=== PATIENT | male | born 2005 | race Caucasian/White ===

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

== ENCOUNTER 2023-02-01 10:16 | Emergency (ER) | payer BC ==
--- NOTE | 2023-02-01 10:46 | RAD REPORT ---
EXAM DESCRIPTION: CT - Stone Protocol - 02/01/2023 10:36 am CLINICAL HISTORY: Flank pain. FLANK PAIN COMPARISON: Abdomen Pelvis W Contrast dated 11/02/2021 TECHNIQUE: Axial images were obtained without oral or IV contrast. Lack of contrast limits solid org an and vascular assessment. The [id number] spans the entirety of the system partially obscuring uppermost abdomen and lung bases. Coronal reformatted images were obtained and reviewed. All CT scans are performed using dose optimization technique as appropriate and may include automated exposure control or mA/KV adjustment according to patient size. FINDINGS: The lower lung pinto are clear. Imaged portions of the liver and spleen show no suspicious findings on non-contrast imaging. The panc reas and adrenal glands are normal. No pathologic lymphadenopathy in the abdomen or pelvis. There is a 4 mm stone proximal left ureter resulting in mild left hydronephrosis and hydroureter. No additional stone or hydronephrosis. No bowel obstruction, free air, free fluid or abscess. Mildly prominent lymph nodes are seen in right lower quadrant.Normal appendix. No significant bony abnormality. Lower lumbar degenerative changes are present. IMPRESSION: 4 mm stone proximal left ureter resulting in mild left hydronephrosis and hydroureter.
[2023-02-01] MEDS ORDERED: KETOROLAC 30 MG/ML INJ ONE (10:47)
[2023-02-01] MEDS ORDERED: MORPHINE 4 MG/ML SYR ONE (10:47)
[2023-02-01] MEDS ORDERED: NA CHLORIDE 0.9% 1,000 ML ONE ×2 (10:48→11:43)
[2023-02-01] MEDS ORDERED: FAMOTIDINE 20 MG/2 ML VIAL IV ONE (10:48)
[2023-02-01] MEDS ORDERED: ONDANSETRON 4 MG/2 ML VIAL ONE (10:48)
[2023-02-01 11:00] LABS: Specific Gravity > 1.030 (1.005-1.030); Urine Bacteria <20 /HPF (<20); Urine Bilirubin NEGATIVE (Negative); Urine Blood 3+ (OVER) (Negative); Urine Clarity Extremely Turbid (Clear); Urine Color Dark-Brown (Yellow); Urine Glucose NEGATIVE (Negative); Urine Mucus 4+ /HPF (None Seen); Urine Protein 3+ (Negative); Urine RBC >50 /HPF (None Seen); Urine Urobilinogen Normal (Normal); Urine pH 5.5 (5.0-7.0)
[2023-02-01 11:07] LABS: Hematocrit 42.6 % (39.6-49.0); MCV 92.6 fL (80-100); MPV 7.2 fL (7.6-11.3)
[2023-02-01] MEDS ORDERED: CEFTRIAXONE 1000 MG/VIAL ONE (11:22)
[2023-02-01] MEDS ORDERED: TAMSULOSIN 0.4 MG SR CAP ONE (11:23)
[2023-02-01 11:27] LABS: Albumin 4.8 g/dL (3.4-5.0); Bilirubin Total 0.6 mg/dL (0.2-1.0); Potassium 3.9 mEq/L (3.5-5.1); Protein, Total 8.3 g/dL (6.4-8.2)
--- NOTE | 2023-02-01 13:19 | ER ---
Nurse's Notes [facility] Name: Thony Ramos Age: 17 yrs Sex: Male : 2005 Arrival Date: 02/01/2023 Time: 10:16 Bed 18 Private MD: Diagnosis: Hydronephrosis with renal and ureteral calculous obstruction-4mm proximal left ureter Presentation: 02/01 10:20 Chief complaint: Patient states: he believes he has a kidney stone. patient reports ap3 pain in the left lower quadrant of his abdomen that radiates to his left flank. patient states his urine was red and cloudy this morning. Coronavirus screen: At this time, the client does not indicate any symptoms associated with coronavirus-19. Ebola Screen: No symptoms or risks identified at this time. Initial Sepsis Screen: Does the patient meet any 2 criteria? No. Patient's initial sepsis screen is negative. Does the patient have a suspected source of infection? No. Patient's initial sepsis screen is negative. Risk Assessment: Do you want to hurt yourself or someone else? Patient reports no desire to harm self or others. Onset of symptoms was January 31, 2023. 10:20 Method Of Arrival: Ambulatory ap3 10:20 Acuity: GHADA 3 ap3 Triage Assessment: 10:24 General: Appears uncomfortable, Behavior is calm, cooperative. Pain: Complains of pain ap3 in left lower quadrant Pain radiates to left low back Pain currently is 10 out of 10 on a pain scale. Pain began 1 day ago. Neuro: Level of Consciousness is awake, alert, obeys commands, Oriented to person, place, time, situation, Appropriate for age. Cardiovascular: Patient's skin is warm and dry. Respiratory: Airway is patent Respiratory effort is even, unlabored, Respiratory pattern is regular, symmetrical. GI: Reports nausea. : Reports blood in urine. Historical: - Allergies: 10:23 No Known Allergies; ap3 - Home Meds: 10:23 None [Active]; ap3 - PMHx: 10:23 colitis; ap3 - PSHx: 10:22 hernia repair; ap3 - Immunization history:: Client reports having NOT received the Covid vaccine. - Social history:: Smoking status: Reported history of juuling and/or vaping. Patient uses street drugs, marijuana. Screenin:25 [facility] ED Fall Risk Assessment (Adult) History of falling in the last 3 months, ap3 including since admission No falls in past 3 months (0 pts). Abuse screen: Denies threats or abuse. Nutritional screening: No deficits noted. Tuberculosis screening: No symptoms or risk factors identified. Assessment: 10:52 General: Appears in no apparent distress. uncomfortable, Behavior is cooperative, ld1 anxious, fussy. Pain: Complains of pain in low back area and abdomen Pain does not radiate. Pain currently is 10 out of 10 on a pain scale. Quality of pain is described as throbbing, Pain began suddenly, Is continuous. Neuro: Level of Consciousness is awake, alert, obeys commands, Oriented to person, place, time, situation. Cardiovascular: Capillary refill < 3 seconds Patient's skin is warm and dry. Respiratory: Airway is patent Respiratory effort is even, unlabored. GI: Abdomen is round non-distended, Bowel sounds present X 4 quads. Abd is soft Abdomen is tender to palpation in right lower quadrant and left lower quadrant. : No signs and/or symptoms were reported regarding the genitourinary system. EENT: No signs and/or symptoms were reported regarding the EENT system. Derm: No signs and/or symptoms reported regarding the dermatologic system. Musculoskeletal: No signs and/or symptoms reported regarding the musculoskeletal system. 11:40 Reassessment: Patient appears in no apparent distress at this time. Patient and/or ld1 family updated on plan of care and expected duration. Pain level reassessed. Patient is alert, oriented x 3, equal unlabored respirations, skin warm/dry/pink. Patient states feeling better. Patient states symptoms have improved. 13:33 Reassessment: Patient appears in no apparent distress at this time. No changes from ld1 previously documented assessment. Patient and/or family updated on plan of care and expected duration. Pain level reassessed. Patient is alert, oriented x 3, equal unlabored respirations, skin warm/dry/pink. Vital Signs: 10:20 BP 128 / 88; Pulse 55; Resp 19; Temp 97.3; Pulse Ox 100% ; Pain 10/10; ap3 10:22 Weight 77.11 kg; Height 6 ft. 0 in. ; ap3 10:52 BP 119 / 74; Pulse 54; Resp 18; Pulse Ox 98% on R/A; Pain 10/10; ld1 11:40 BP 89 / 42; Pulse 63; Resp 18; Pulse Ox 100% on R/A; ld1 13:01 BP 100 / 63; Pulse 57; Resp 18; Pulse Ox 99% on R/A; ld1 13:33 BP 106 / 70; Pulse 61; Resp 18; Pulse Ox 100% on R/A; Pain 3/10; ld1 10:22 Body Mass Index 23.06 (77.11 kg, 182.88 cm) ap3 10:20 Pain Scale: Adult ap3 10:52 Pain Scale: Adult ld1 13:33 Pain Scale: Adult ld1 ED Course: 10:17 Patient arrived in ED. rg4 10:19 Catherine Garcia FNP-C is PHCP. snw 10:19 Abdullahi Higuera DO is Attending Physician. snw 10:22 Triage completed. ap3 10:25 Arm band placed on left wrist. ap3 10:29 Shyann Higuera, RN is Primary Nurse. ld1 10:[address] In Process Unspecified. EDMS 10:52 Patient has correct armband on for positive identification. Placed in gown. Bed in low ld1 position. Call light in reach. Side rails up X2. staffing operations manager on. Pulse ox on. NIBP on. Door closed. Noise minimized. Warm blanket given. 10:52 CBC with Diff Sent. ld1 10:52 CMP Sent. ld1 10:52 Lipase Sent. ld1 10:52 Urinalysis w/ reflexes Sent. ld1 10:52 No provider procedures requiring assistance completed. Inserted saline lock: 20 gauge ld1 in right antecubital area, using aseptic technique. Blood collected. 13:34 IV discontinued, intact, bleeding controlled, No redness/swelling at site. ld1 Administered Medications: 10:52 Drug: NS 0.9% IV 1000 ml Route: IV; Rate: 1 bolus; Site: right antecubital; ld1 10:52 Drug: Famotidine IVP 20 mg Route: IVP; Site: right antecubital; ld1 10:52 Drug: TORadol - Ketorolac IVP 15 mg Route: IVP; Site: right antecubital; ld1 10:52 Drug: Ondansetron IVP 4 mg Route: IVP; Site: right forearm; ld1 10:52 Drug: morphine IVP or IV 4 mg Route: IVP; Infused Over: 4 mins; Site: right antecubital;ld1 11:17 Drug: Rocephin IV 1 grams Route: IV; Rate: calculated rate; Site: right antecubital; ld1 11:17 Drug: Flomax PO 0.4 mg Route: PO; ld1 11:41 Drug: NS 0.9% IV 1000 ml Route: IV; Rate: 1000 ml; Site: left antecubital; ld1 Medication: 10:52 VIS not applicable for this client. ld1 Outcome: 13:18 Discharge ordered by . snw 13:33 Discharged to home ambulatory, with family. ld1 13:33 Condition: stable 13:33 Discharge instructions given to patient, family, Instructed on discharge instructions, follow up and referral plans. medication usage, Demonstrated understanding of instructions, follow-up care, medications, Prescriptions given X 4. 13:34 Patient left the ED. ld1 Signatures: Dispatcher [employer] EDCatherine Patel, CUSTOMER SERVICE DISPATCHER-C CUSTOMER SERVICE DISPATCHER-Yolanda Burnett rg4 Mónica Dee, RN RN ap3 Shyann Higuera, RN RN ld1
--- NOTE | 2023-02-01 13:19 | EDPHYS ---
Physician Documentation [facility] Name: Thony Ramos Age: 17 yrs Sex: Male : 2005 Arrival Date: 02/01/2023 Time: 10:16 Bed 18 Private MD: ED Physician Abdullahi Higuera HPI: 02/01 10:25 This 17 yrs old Male presents to ER via Ambulatory with complaints of Possible Kidney snw Stone. 10:25 Onset: The symptoms/episode began/occurred acutely, this am. Associated signs and snw symptoms: Pertinent positives: abdominal pain. Modifying factors: The patient symptoms are alleviated by nothing, the patient symptoms are aggravated by remaining still. The patient has experienced a previous episode, approximately 7 months ago. The patient has not recently seen a physician. Historical: - Allergies: 10:23 No Known Allergies; ap3 - Home Meds: 10:23 None [Active]; ap3 - PMHx: 10:23 colitis; ap3 - PSHx: 10:22 hernia repair; ap3 - Immunization history:: Client reports having NOT received the Covid vaccine. - Social history:: Smoking status: Reported history of juuling and/or vaping. Patient uses street drugs, marijuana. ROS: 10:27 Constitutional: Negative for fever, chills, and weight loss, Eyes: Negative for injury, snw pain, redness, and discharge, ENT: Negative for injury, pain, and discharge, Neck: Negative for injury, pain, and swelling, Cardiovascular: Negative for chest pain, palpitations, and edema, Respiratory: Negative for shortness of breath, cough, wheezing, and pleuritic chest pain. 10:27 Back: Negative for injury and pain, : Negative for injury, bleeding, discharge, and swelling, MS/Extremity: Negative for injury and deformity, Skin: Negative for injury, rash, and discoloration, Neuro: Negative for headache, weakness, numbness, tingling, and seizure, Psych: Negative for depression, anxiety, suicide ideation, homicidal ideation, and hallucinations. 10:27 Abdomen/GI: Positive for abdominal pain, nausea and vomiting, of the posterior aspect of left lateral abdomen and left lower quadrant. Exam: 10:24 Head/Face: Normocephalic, atraumatic. Eyes: Pupils equal round and reactive to light, snw extra-ocular motions intact. Lids and lashes normal. Conjunctiva and sclera are non-icteric and not injected. Cornea within normal limits. Periorbital areas with no swelling, redness, or edema. ENT: Nares patent. No nasal discharge, no septal abnormalities noted. Tympanic membranes are normal and external auditory canals are clear. Oropharynx with no redness, swelling, or masses, exudates, or evidence of obstruction, uvula midline. Mucous membranes moist. Neck: Trachea midline, no thyromegaly or masses palpated, and no cervical lymphadenopathy. Supple, full range of motion without nuchal rigidity, or vertebral point tenderness. No Meningismus. Chest/axilla: Normal chest wall appearance and motion. Nontender with no deformity. No lesions are appreciated. Cardiovascular: Regular rate and rhythm with a normal S1 and S2. No gallops, murmurs, or rubs. Normal PMI, no JVD. No pulse deficits. Respiratory: Lungs have equal breath sounds bilaterally, clear to auscultation and percussion. No rales, rhonchi or wheezes noted. No increased work of breathing, no retractions or nasal flaring. Back: No spinal tenderness. No costovertebral tenderness. Full range of motion. Skin: Warm, dry with normal turgor. Normal color with no rashes, no lesions, and no evidence of cellulitis. MS/ Extremity: Pulses equal, no cyanosis. Neurovascular intact. Full, normal range of motion. Neuro: Awake and alert, GCS 15, oriented to person, place, time, and situation. Cranial nerves II-XII grossly intact. Motor strength 5/5 in all extremities. Sensory grossly intact. Cerebellar exam normal. Normal gait. Psych: Awake, alert, with orientation to person, place and time. Behavior, mood, and affect are within normal limits. 10:24 Constitutional: The patient appears alert, awake, in obvious pain, pale. 10:24 Abdomen/GI: Inspection: abdomen appears normal, Bowel sounds: normal, left lower flank and left mid abd pain, splinting. Vital Signs: 10:20 BP 128 / 88; Pulse 55; Resp 19; Temp 97.3; Pulse Ox 100% ; Pain 10/10; ap3 10:22 Weight 77.11 kg; Height 6 ft. 0 in. ; ap3 10:52 BP 119 / 74; Pulse 54; Resp 18; Pulse Ox 98% on R/A; Pain 10/10; ld1 11:40 BP 89 / 42; Pulse 63; Resp 18; Pulse Ox 100% on R/A; ld1 13:01 BP 100 / 63; Pulse 57; Resp 18; Pulse Ox 99% on R/A; ld1 13:33 BP 106 / 70; Pulse 61; Resp 18; Pulse Ox 100% on R/A; Pain 3/10; ld1 10:22 Body Mass Index 23.06 (77.11 kg, 182.88 cm) ap3 10:20 Pain Scale: Adult ap3 10:52 Pain Scale: Adult ld1 13:33 Pain Scale: Adult ld1 MDM: 10:28 Patient medically screened. snw 11:26 Differential diagnosis: pain controlled from renal colic, stone, obstructive stone. snw Data reviewed: vital signs, nurses notes, lab test result(s), radiologic studies. I considered the following discharge prescriptions or medication management in the emergency department Medications were administered in the Emergency Department. See MAR. Counseling: I had a detailed discussion with the patient and/or guardian regarding: the historical points, exam findings, and any diagnostic results supporting the discharge/admit diagnosis, lab results, radiology results. Response to treatment: the patient's symptoms have markedly improved after treatment. 13:15 Response to treatment: patient is well hydrated. appt with U[facility] in [place] on the . Special discussion: Based on the history and exam findings, there is no indication for further emergent testing or inpatient evaluation. I discussed with the patient/guardian the need to see the urologist for further evaluation of the symptoms. 02/01 10:24 Order name: CBC with Diff; Complete Time: 11:02/01 10:24 Order name: CMP; Complete Time: 11:29 02/01 10:24 Order name: Lipase; Complete Time: 11:29 w 02/01 10:24 Order name: Urinalysis w/ reflexes; Complete Time: 11:02/01 11:12 Order name: Urine Culture EDOH 02/01 10:24 Order name: Stone Protocol CT; Complete Time: 10:47 02/01 10:24 Order name: IV Saline Lock; Complete Time: 10:52 w 02/01 10:24 Order name: Labs collected and sent; Complete Time: 10:52 snw Administered Medications: 10:52 Drug: NS 0.9% IV 1000 ml Route: IV; Rate: 1 bolus; Site: right antecubital; ld1 10:52 Drug: Famotidine IVP 20 mg Route: IVP; Site: right antecubital; ld1 10:52 Drug: TORadol - Ketorolac IVP 15 mg Route: IVP; Site: right antecubital; ld1 10:52 Drug: Ondansetron IVP 4 mg Route: IVP; Site: right forearm; ld1 10:52 Drug: morphine IVP or IV 4 mg Route: IVP; Infused Over: 4 mins; Site: right antecubital;ld1 11:17 Drug: Rocephin IV 1 grams Route: IV; Rate: calculated rate; Site: right antecubital; ld1 11:17 Drug: Flomax PO 0.4 mg Route: PO; ld1 11:41 Drug: NS 0.9% IV 1000 ml Route: IV; Rate: 1000 ml; Site: left antecubital; ld1 Disposition: 15:41 Co-signature as Attending Physician, Abdullahi BILLINGS was immediately available on-site ms3 in the Emergency Department for consultation in the care of the patient. Disposition Summary: 02/01/23 13:18 Discharge Ordered Location: Home snw Condition: Stable snw Diagnosis - Hydronephrosis with renal and ureteral calculous obstruction - 4mm proximal left snw ureter Followup: snw - With: Emergency Department - When: As needed - Reason: Worsening of condition Followup: snw - With: Private Physician - When: As needed - Reason: Recheck today's complaints, Continuance of care, Re-evaluation by your physician Discharge Instructions: - Discharge Summary Sheet snw - Kidney Stones snw - Renal Colic snw - Hydronephrosis snw - Dietary Guidelines to Help Prevent Kidney Stones snw - Rehydration, Adult snw Forms: - Work release form snw - Medication Reconciliation Form snw - Thank You Letter snw - Antibiotic Education snw - Prescription Opioid Use snw - Patient Portal [email or web address].htm snw Prescriptions: - acetaminophen-codeine 300-30 mg Oral tablet - take 1 tablet by ORAL route 3 times per day as needed for pain; 20 tablet; snw Refills: 0, Product Selection Permitted - Augmentin 875-125 mg Oral Tablet - take 1 tablet by ORAL route every 12 hours for 10 days; 20 tablet; Refills: 0, snw Product Selection Permitted - Diclofenac Sodium 75 mg Oral Tablet Sustained Release - take 1 tablet by ORAL route 2 times per day; 30 tablet; Refills: 0, Product snw Selection Permitted - promethazine 25 mg Oral Tablet - take 1 tablet by ORAL route every 6 hours As needed; 20 tablet; Refills: 0, snw Product Selection Permitted Signatures: Dispatcher [employer] EDCatherine Patel, [employer]-C [employer]-Csnw Mónica Dee RN RN ap3 Abdullahi Higuera DO DO ms3 Shyann Higuera RN RN ld1
[2023-02-01 13:55] VITALS: TEMP 97.3
[2023-02-01 14:01] VITALS: BP 106/70; O2SAT 100
== END 2023-02-01 13:34 | disposition home or self-care (01) ==
LOC: ER 10:16
DX: N13.2 Hydronephrosis with renal and ureteral calculous obstruction (principal)
CPT/HCPCS: 87088; 85025; 81001; 87086; 36415; 83690; 80053; 76377; 74176; 99285; J2405; J7030 ×2; J0696

== ENCOUNTER 2023-03-04 07:18 | Emergency (ER) | payer BC ==
--- OUTSIDE RECORDS SUMMARY | 2023-03-04 07:20 | XMS REPORT | Continuity of Care Document ---
:2005 Author Organization [facility] [place] t Address [address] [place] [address] [place] [address] Care Team Providers Name Role Phone Pcp, Patient Does Not Have A Primary Care Physician [id number] BARTOLO REYNOLDS Attending Clinician Unavailable Doctor Unassigned, [place] Attending Clinician Unavailable Bartolo Cervantes Attending Clinician Randee SIMPSON Attending Clinician Unavailable Randee Parker Attending Clinician Randee SIMPSON Admitting Clinician Unavailable Payers Payer Name Policy Type Policy Number Effective Date Expiration Date S ource Problems This patient has no known problems. Allergies, Adverse Reactions, Alerts Allergy Allergy Status Severity Reaction(s) Onset Inactive Treating Comm ents Source Name Type Date Date Clinician NO KNOWN Drug Active Univers ALLERGIE Class ity of [facility] Social History Social Habit Start Date Stop Date Quantity Comments Source Gender identity [facility] Sexual orientation [facility] Exposure to 2022-03-13 2022-03-23 Unable to [facility] SARS-CoV-2 (event) 00:00:00 10:07:00 assess [facility] Sex Assigned At [birth year] [facility] y of 00:00:00 00:00:00 [facility] Smoking Status Start Date Stop Date Source Tobacco smoking consumption [facility] Medications Ordered Filled Start Stop Current Ordering Indication Dosage Frequency Signature Comments Components Source Medication Medication Date Date Medication? Clinician (SIG) Name Name tamsulosin 2023-0 Yes [id number] .4mg Take 1 Univers 0.4 mg 24 7-17 capsule by ity of hr capsule 00:00: mouth in [place] 00 the Medical morning. Branch tamsulosin 3-0 Yes [id number] .4mg Take 1 Univers 0.4 mg 24 7-17 capsule by ity of hr capsule 00:00: mouth in [place] 00 the Medical morning. Branch tamsulosin 3-0 Yes [id number] .4mg Take 1 Univers 0.4 mg 24 7-17 capsule by ity of hr capsule 00:00: mouth in [place] 00 the Medical morning. Branch tamsulosin 3-0 Yes [id number] .4mg Take 1 Univers 0.4 mg 24 7-17 capsule by ity of hr capsule 00:00: mouth in [place] 00 the Medical morning. Branch tamsulosin 3-0 Yes [id number] .4mg Take 1 Univers 0.4 mg 24 7-17 capsule by ity of hr capsule 00:00: mouth in [place] 00 the Medical morning. Branch ketorolac 3-0 2022- Yes [id number] 10mg Take 1 Univers 10 mg 7-17 07-23 tablet by ity of tablet 00:00: 04:59 mouth [place] 00 :00 every 6 Medical (six) Branch hours as needed for Pain (scale 7-10) or Pain (scale 4-6) for up to 5 days. ketorolac 3-0 2022- Yes [id number] 10mg Take 1 Univers 10 mg 7-17 07-23 tablet by ity of tablet 00:00: 04:59 mouth [place] 00 :00 every 6 Medical (six) Branch hours as needed for Pain (scale 7-10) or Pain (scale 4-6) for up to 5 days. ketorolac 2023-0 2022- Yes [id number] 10mg Take 1 Univers 10 mg 7-17 07-23 tablet by ity of tablet 00:00: 04:59 mouth [place] 00 :00 every 6 Medical (six) Branch hours as needed for Pain (scale 7-10) or Pain (scale 4-6) for up to 5 days. ketorolac 3-0 2022- Yes [id number] 10mg Take 1 Univers 10 mg 7-17 07-23 tablet by ity of tablet 00:00: 04:59 mouth [place] 00 :00 every 6 Medical (six) Branch hours as needed for Pain (scale 7-10) or Pain (scale 4-6) for up to 5 days. ketorolac 2022- Yes [id number] 10mg Take 1 Univers 10 mg 02-07 tablet by ity of tablet 00:00: 04:59 mouth [place] 00 :00 every 6 Medical (six) Branch hours as needed for Pain (scale 7-10) or Pain (scale 4-6) for up to 5 days. piperacilli 2021- No 3.375g 3.375 g, Univers n-tazobacta 03-23 IV ity of m (ZOSYN) 17:30: 18:00 [place], [place] 3.375 g in 00 :00 ONCE, 1 Medica l NaCl 0.9% dose, On Branch (NS) 50 mL Tue MINI-BAG 03/23/22 at 1230, Administer over 30 Minutes, 50 mL
R maegan for Anti-Infec tive: Documented Infection< br>Documen kary Infection Site: Abdominal< br>Duratio n of Therapy: Other (see Comments) NaCl 0.9% 2021- No 1000mL at 999 Uni vers (NS) IV 03-23- mL/hr, ity of infusion 17:00: 17:18 Intravenou [place] 1,000 mL 00 :00 s, ONCE, 1 Medic al dose, On Branch [facility] 03/23/22 at 1200, AUDREY iopamidol 2021- No [id number] 100mL 100 mL, Univers (ISOVUE 03-23 Intravenou ity o f 370-500 mL) 16:15: 16:30 s, ONCE, 1 [place] injection 00 :00 dose, On Medica l [facility] at 1130, Routine amoxicillin 0 Yes [id number] 1{tbl} Take 1 Univers -clavulanat 8-30 tablet by ity of e 875-125 00:00: mouth [place] mg per 00 every 12 Medical tablet (twelve) Branch hours. amoxicillin Yes [id number] 1{tbl} Take 1 Univers -clavulanat 8-30 tablet by ity of e 875-125 00:00: mouth [place] mg per 00 every 12 Medical tablet (twelve) Branch hours. amoxicillin 2022- No [id number] 1{tbl} Take 1 Univers -clavulanat 8-30 - tablet by it y of e 875-125 00:00: 00:00 mouth [place] mg per 00 :00 every 12 Medical tablet (twelve) Branch hours. amoxicillin 2022- No [id number] 1{tbl} Take 1 Univers -clavulanat 8-30 - tablet by it y of e 875-125 00:00: 00:00 mouth [place] mg per 00 :00 every 12 Medical tablet (twelve) Branch hours. amoxicillin 2022- No [id number] 1{tbl} Take 1 Univers -clavulanat 8-30 - tablet by it y of e 875-125 00:00: 00:00 mouth [place] mg per 00 :00 every 12 Medical tablet (twelve) Branch hours. Vital Signs Vital Name Observation Time Observation Value Comments Source Systolic blood 2023-02-07 14:08:00 125 mm[Hg] [facility]iver [facility] Diastolic blood 2023-02-07 14:08:00 75 [facility]Hg[facility] 2023-02-07 14:08:00 60 /min [facility] Body temperature 2023-02-07 14:08:00 36.72 Zoe [facility] Body height 2023-02-07 14:08:00 182.9 cm [facility] Body weight 2023-02-07 14:08:00 83.915 kg [facility] BMI 2023-02-07 14:08:00 25.09 kg/m2 [facility] Oxygen saturation in 2023-02-07 14:08:00 99 /min [facility] Arterial blood by [facility] Pulse oximetry Branch Systolic blood 2022-03-23 17:00:00 129 mm[Hg] Univer sity [facility] Diastolic blood 2022-03-23 17:00:00 79 mm[Hg] Unive rsity [facility] Heart rate 2022-03-23 17:00:00 89 /min [facility] Respiratory rate 2022-03-23 17:00:00 13 /min [facility] Oxygen saturation in 2022-03-23 17:00:00 100 /min [facility] Arterial blood by [facility] Pulse oximetry Branch Body temperature 2022-03-23 16:35:00 37.22 [facility]oe [facility] Body height 2022-03-23 14:57:00 185.4 cm [facility] Body weight 2022-03-23 14:57:00 78.019 kg [facility] BMI 2022-03-23 14:57:00 22.69 kg/m2 [facility] Body mass index 2022-03-23 14:57:00 55.38 % [facility] (BMI) [Percentile] [facility] ica Per age and sex Branch Procedures Procedure Date / Time Performing Clinician Source Performed PATIENT CORRESPONDENCE 2023-02-10 05:01:00 Doctor Karla, [facility] (LETTERS, USPS [place] [facility] [employer] DOCUMENTATION) XR KUB 2023-02-07 14:54:00 Bartolo Reynolds [facility] CONSENT/REFUSAL FOR 2023-02-07 14:01:12 Doctor Karla, [facility] DIAGNOSIS AND TREATMENT [place] [facility] AUTHORIZATION TO RELEASE 2023-02-07 05:01:00 Doctor Karla, [facility] PHI TO [facility] [place] [facility] CT ABDOMEN PELVIS W 2022-03-23 16:26:51 Randee Simpson [facility] CONTRAST [facility] Branch XR CHEST 1 VW 2022-03-23 16:07:12 Randee Simpson [place] [facility] COMP. METABOLIC PANEL 2022-03-23 15:15:00 Randee Simpson [facility] ([id number]) Medical [employer] CBC WITH DIFF 2022-03-23 15:15:00 Randee Simpson [place] [facility] [place] [facility] [employer] NOTICE OF PRIVACY 2022-03-23 14:54:46 Doctor Karla, [facility] PRACTICES [place] [facility] Encounters Start End Encounter Admission Attending Care Care Encounter Source Date/Time Date/Time Type Type Clinicians Facility Department ID 2023-02-10 2023-02-10 Orders Doctor KRYSTA [id number] [id number] Univers 00:00:00 00:00:00 Only Unassigned, [place] [id number] ity of [place] [facility] 4.2.7.2.686 [place] [phone] [facility] 009 Branch 2023-02-07 2023-02-07 Hospital [facility] 1.2.840.114 [id number] Univers 09:33:52 23:59:00 Encounter Bartolo Rivera [facility] [id number] ity of [id number] [id number] [facility] 807 Branch 2023-02-07 2023-02-07 Office [facility]ly [facility] [id number] Univers 09:30:00 10:00:[id number] [facility] [id number] [id number] [facility] 204 Branch 2023-02-07 2023-02-07 Outpatient [facility] [id number] Univers 09:30:00 09:30:00 BARTOLO ity of [facility] 2023-02-07 2023-02-07 Orders Doctor KRYSTA [id number] Univers 00:00:00 00:00:00 Only Unassigned, [place] [id number] ity of [place] [facility] [id number] [place] [id number] [facility] 009 Branch 2022-03-23 2022-03-23 Emergency X Randee SIMPSON [facility] ERT [id number] Univers 09:59:00 13:20:00 ity of [facility] 2022-03-23 2022-03-23 Emergency Randee Simpson [facility] [id number] Univers 09:59:00 13:20:00 Thao WORLEY [id number] i ty [facility] [id number] [id number] Medi bridget 084 Branch Results This patient has no known results.
[2023-03-04] MEDS ORDERED: ONDANSETRON 4 MG/2 ML VIAL ONE (07:43)
[2023-03-04] MEDS ORDERED: NA CHLORIDE 0.9% 1,000 ML ONE (07:43)
[2023-03-04] MEDS ORDERED: KETOROLAC 30 MG/ML INJ ONE (07:43)
[2023-03-04 07:45] LABS: Hematocrit 42.7 % (39.6-49.0); MCV 92.3 fL (80-100); MPV 7.4 fL (7.6-11.3); Platelets 407 thou/uL (152-406); RBC Red Blood Cell Count 4.62 M/uL (4.33-5.43)
--- NOTE | 2023-03-04 07:49 | RAD REPORT ---
EXAM DESCRIPTION: CTAbdomen Pelvis Wo Contrast - 03/04/2023 7:35 am CLINICAL HISTORY: FLANK PAIN COMPARISON: Stone Protocol dated 02/01/2023; Abdomen Pelvis W Contrast dated 11/02/2021 TECHNIQUE: CT of the abdomen and pelvis was performed. All CT scans are performed using dose optimization technique as appropriate and may include automated exposure control or mA/KV adjustment according to patient size. FINDINGS: Lower chest: No acute abnormality. Liver: No acute abnormality or suspicious lesions. Biliary: No biliary ductal dilatation. Stomach: No significant focal abnormality. Duodenum: No significant focal abnormality. Pancreas: No significant abnormality. Spleen: No significant abnormality. Adrenal: No suspicious lesions. Kidney/ureter: Persistent mild left-sided hydroureteronephrosis with 5 millimeters stone in the left proximal to mid ureter. The stone is in similar position to 02/01/2023. Retroperitoneum: No retroperitoneal adenopathy. Vascular: No aneurysm. Bowel: No bowel obstruction. Normal appendix. Peritoneum: No ascites or free air. Bladder: Grossly unremarkable. Reproductive: No adnexal masses. Bones: No acute fracture. Other: n/a IMPRESSION: Similar positioning of the 5 mm stone in the left proximal to mid ureter with mild left- sided hydronephrosis compared with 02/01/2023.
[2023-03-04 07:56] LABS: Albumin 4.9 g/dL (3.4-5.0); Bilirubin Total 1.1 mg/dL (0.2-1.0); Potassium 3.3 mEq/L (3.5-5.1); Protein, Total 8.5 g/dL (6.4-8.2)
[2023-03-04] MEDS ORDERED: MORPHINE 4 MG/ML SYR ONE (08:51)
[2023-03-04 09:01] LABS: Urine Bacteria <20 /HPF (<20); Urine Bilirubin NEGATIVE (Negative); Urine Blood 3+ (Negative); Urine Clarity Extremely Turbid (Clear); Urine Color Yellow (Yellow); Urine Glucose NEGATIVE (Negative); Urine Mucus 4+ /HPF (None Seen); Urine Protein 1+ (Negative); Urine RBC >50 /HPF (None Seen); Urine Urobilinogen Normal (Normal)
--- NOTE | 2023-03-04 09:10 | EDPHYS ---
Physician Documentation [facility] Name: Thony Ramos Age: 17 yrs Sex: Male : 2005 Arrival Date: 03/04/2023 Time: 07:18 Bed 17 Private MD: ED Physician Franck Tong HPI: 03/04 07:32 This 17 yrs old Male presents to ER via Ambulatory with complaints of Possible Kidney rt Stone. 07:32 Patient was diagnosed with a left-sided ureteral stone 1 month ago. Patient states that rt overnight, he had return and worsening of the pain localized to the left flank radiating to the abdomen. It is sharp in nature, severe in severity. He has associated nausea, vomiting, no other acute complaints. . Historical: - Allergies: 07:25 No Known Allergies; hb - Home Meds: 07:25 None [Active]; hb - PMHx: 07:25 Colitis; hb - PSHx: 07:25 hernia repair; hb - Immunization history:: Adult Immunizations up to date. - Social history:: Smoking status: Patient denies any tobacco usage or history of. - Family history:: not pertinent. ROS: 07:32 Constitutional: Negative for fever, chills, and weight loss, Respiratory: Negative for rt shortness of breath, cough, wheezing, and pleuritic chest pain, MS/Extremity: Negative for injury and deformity, Skin: Negative for injury, rash, and discoloration, Neuro: Negative for headache, weakness, numbness, tingling, and seizure, Psych: Negative for depression, anxiety, suicide ideation, homicidal ideation, and hallucinations. 07:32 Abdomen/GI: Positive for abdominal pain, nausea and vomiting. 07:32 Back: Positive for flank pain, Negative for injury or acute deformity. Exam: 07:32 Constitutional: This is a well developed, well nourished patient who is awake, alert, rt and in no acute distress. Head/Face: Normocephalic, atraumatic. Chest/axilla: Normal chest wall appearance and motion. Nontender with no deformity. No lesions are appreciated. Cardiovascular: Regular rate and rhythm with a normal S1 and S2. No gallops, murmurs, or rubs. Normal PMI, no JVD. No pulse deficits. Respiratory: Lungs have equal breath sounds bilaterally, clear to auscultation and percussion. No rales, rhonchi or wheezes noted. No increased work of breathing, no retractions or nasal flaring. Skin: Warm, dry with normal turgor. Normal color with no rashes, no lesions, and no evidence of cellulitis. MS/ Extremity: Pulses equal, no cyanosis. Neurovascular intact. Full, normal range of motion. Neuro: Awake and alert, GCS 15, oriented to person, place, time, and situation. Cranial nerves II-XII grossly intact. Motor strength 5/5 in all extremities. Sensory grossly intact. Cerebellar exam normal. Normal gait. Psych: Awake, alert, with orientation to person, place and time. Behavior, mood, and affect are within normal limits. 07:32 Abdomen/GI: Tenderness to the left upper quadrant, no rebound, guarding, distention. 07:32 Back: Left CVAT, no midline tenderness. Vital Signs: 07:24 BP 110 / 73; Pulse 73; Resp 16; Pulse Ox 100% on R/A; Weight 77.11 kg; Height 6 ft. 0 ap3 in. ; Pain 10/10; 07:44 Temp 97.7(A); ap3 07:45 BP 136 / 86; Pulse 89; Pulse Ox 100% ; ap3 07:24 Body Mass Index 23.06 (77.11 kg, 182.88 cm) ap3 07:24 Pain Scale: Adult ap3 MDM: 07:22 Patient medically screened. rt 09:12 Differential Diagnosis Pyelonephritis, ureteral stone, infected kidney stone. Data rt reviewed: vital signs, nurses notes. I considered the following discharge prescriptions or medication management in the emergency department Medications were administered in the Emergency Department. See MAR. Independent interpretation of the following test(s) in the Emergency Department CT Scan: My interpretation is Ureteral calculus seen on interpretation of the CT scan images. Counseling: I had a detailed discussion with the patient and/or guardian regarding: the historical points, exam findings, and any diagnostic results supporting the discharge/admit diagnosis, lab results, radiology results, the need for outpatient follow up, to return to the emergency department if symptoms worsen or persist or if there are any questions or concerns that arise at home. Response to treatment: the patient's symptoms have markedly improved after treatment. 03/04 07:25 Order name: CBC w/o diff; Complete Time: :52 rt 03/04 07:25 Order name: CMP; Complete Time: 08:31 rt 03/04 07:25 Order name: UAM; Complete Time: 09:04 rt 03/04 07:25 Order name: CT Abd/Pelvis - Without Contrast; Complete Time: 07:52 rt Administered Medications: 07:45 Drug: Ondansetron IVP 4 mg Route: IVP; Site: right antecubital; ap3 08:46 Follow up: Response: No adverse reaction; Nausea is decreased ap3 07:45 Drug: NS 0.9% IV 1000 ml Route: IV; Rate: 1 bolus; Site: right antecubital; ap3 08:46 Follow up: IV Status: Completed infusion ap3 07:49 Not Given (dose changee): Ketorolac IVP 30 mg IVP once ap3 07:49 Drug: Ketorolac IVP 15 mg {Note: dose change from prior order.} Route: IVP; Site: right ap3 antecubital; 08:46 Follow up: Response: No adverse reaction; Pain is unchanged, physician notified ap3 08:45 Drug: morphine IVP or IV 4 mg Route: IVP; Infused Over: 4 mins; Site: right antecubital;ap3 09:26 Follow up: Response: No adverse reaction; Pain is decreased ap3 Disposition Summary: 03/04/23 09:10 Discharge Ordered Location: Home rt Problem: an ongoing problem rt Symptoms: have improved rt Condition: Stable rt Diagnosis - Calculus of ureter rt Followup: rt - With: Private Physician - When: 5 - 6 days - Reason: Discharge Instructions: - Discharge Summary Sheet rt - Kidney Stones rt Forms: - Medication Reconciliation Form rt - Thank You Letter rt - Antibiotic Education rt - Prescription Opioid Use rt - Patient Portal Instructions rt Prescriptions: - ondansetron 4 mg Oral Tablet,disintegrating - take 1 tablet by ORAL route every 6 hours; 21 tablet; Refills: 0, Product rt Selection Permitted Signatures: Dispatcher [employer] Ca Mclaughlin RN RN Mónica Barriga RN RN ap3 Franck Tong MD MD rt
--- NOTE | 2023-03-04 09:10 | ER ---
Nurse's Notes [facility] Name: Thony Ramos Age: 17 yrs Sex: Male : 2005 Arrival Date: 03/04/2023 Time: 07:18 Bed 17 Private MD: Diagnosis: Calculus of ureter Presentation: 03/04 07:24 Chief complaint: Left flank pain x 2 weeks, pain became severe this morning. Also c/o hb N/V. Coronavirus screen: At this time, the client does not indicate any symptoms associated with coronavirus-19. Ebola Screen: No symptoms or risks identified at this time. Initial Sepsis Screen: Does the patient meet any 2 criteria? No. Patient's initial sepsis screen is negative. Does the patient have a suspected source of infection? No. Patient's initial sepsis screen is negative. Risk Assessment: Do you want to hurt yourself or someone else? Patient reports no desire to harm self or others. Onset of symptoms was March 04, 2023. 07:24 Method Of Arrival: Ambulatory hb 07:24 Acuity: GHADA 3 hb Historical: - Allergies: 07:25 No Known Allergies; hb - Home Meds: 07:25 None [Active]; hb - PMHx: 07:25 Colitis; hb - PSHx: 07:25 hernia repair; hb - Immunization history:: Adult Immunizations up to date. - Social history:: Smoking status: Patient denies any tobacco usage or history of. - Family history:: not pertinent. Screenin:47 [facility] ED Fall Risk Assessment (Adult) History of falling in the last 3 months, ap3 including since admission No falls in past 3 months (0 pts). Abuse screen: Denies threats or abuse. Nutritional screening: No deficits noted. Tuberculosis screening: No symptoms or risk factors identified. Assessment: 07:46 General: Appears uncomfortable, Behavior is restless. Pain:. Neuro: Level of ap3 Consciousness is awake, alert, obeys commands, Oriented to person, place, time, situation. Cardiovascular: Patient's skin is warm and dry. Respiratory: Airway is patent Respiratory effort is even, unlabored, Respiratory pattern is regular, symmetrical. GI: Bowel sounds present X 4 quads. Abd is soft Reports lower abdominal pain, nausea. : Reports pain in left flank(s). 07:46 Pain: Complains of pain in left flank. ap3 Vital Signs: 07:24 BP 110 / 73; Pulse 73; Resp 16; Pulse Ox 100% on R/A; Weight 77.11 kg; Height 6 ft. 0 ap3 in. ; Pain 10/10; 07:44 Temp 97.7(A); ap3 07:45 BP 136 / 86; Pulse 89; Pulse Ox 100% ; ap3 07:24 Body Mass Index 23.06 (77.11 kg, 182.88 cm) ap3 07:24 Pain Scale: Adult ap3 ED Course: 07:19 Patient arrived in ED. rg4 07:20 Franck Tong MD is Attending Physician. rt 07:25 Triage completed. hb 07:25 Arm band placed on. hb 07:26 Mónica Dee, AMMON is Primary Nurse. ap3 07:30 Initial lab(s) drawn, by me, sent to lab. Inserted saline lock: 20 gauge in right ap3 antecubital area, using aseptic technique. Blood collected. 07:36 CT Abd/Pelvis - Without Contrast In Process Unspecified. EDMS 07:46 CMP Sent. ap3 07:46 CBC w/o diff Sent. ap3 07:47 Patient has correct armband on for positive identification. Bed in low position. Call ap3 light in reach. Side rails up X 1. Adult w/ patient. Pulse ox on. NIBP on. 07:48 Provided Education on: medications prior to administration. ap3 08:45 UAM Sent. ap3 09:08 ED physician to see patient. ap3 09:26 No provider procedures requiring assistance completed. IV discontinued, intact, ap3 bleeding controlled, No redness/swelling at site. Pressure dressing applied. Administered Medications: 07:45 Drug: Ondansetron IVP 4 mg Route: IVP; Site: right antecubital; ap3 08:46 Follow up: Response: No adverse reaction; Nausea is decreased ap3 07:45 Drug: NS 0.9% IV 1000 ml Route: IV; Rate: 1 bolus; Site: right antecubital; ap3 08:46 Follow up: IV Status: Completed infusion ap3 07:49 Not Given (dose changee): Ketorolac IVP 30 mg IVP once ap3 07:49 Drug: Ketorolac IVP 15 mg {Note: dose change from prior order.} Route: IVP; Site: right ap3 antecubital; 08:46 Follow up: Response: No adverse reaction; Pain is unchanged, physician notified ap3 08:45 Drug: morphine IVP or IV 4 mg Route: IVP; Infused Over: 4 mins; Site: right antecubital;ap3 09:26 Follow up: Response: No adverse reaction; Pain is decreased ap3 Medication: 09:26 VIS not applicable for this client. ap3 Outcome: 09:10 Discharge ordered by . rt 09:26 Discharged to home ambulatory, with family. ap3 09:26 Condition: good 09:26 Discharge instructions given to patient, family, Instructed on discharge instructions, follow up and referral plans. medication usage, Demonstrated understanding of instructions, follow-up care, medications, Prescriptions given X 1. 09:26 Patient left the ED. ap3 Signatures: Dispatcher [employer] EDMS Ca Mercado RN RN hb Garcia, Rubi rg4 Mónica Dee RN RN ap3 Franck Tong MD MD rt Corrections: (The following items were deleted from the chart) 07:26 07:24 BP 110 / 73; Pulse 3bpm; Resp 16bpm; Pulse Ox 100% RA; Pain 10/10, Adult; hb hb 07:28 07:24 BP 110 / 73; Pulse 3bpm; Resp 16bpm; Pulse Ox 100% RA; 72.57 kg; Height 5 ft. 11 hb in.; BMI: 22.3; Pain 10/10, Adult; hb 07:47 07:46 : Reports pain flank(s), ap3 ap3 07:48 07:45 Ketorolac IVP 30 mg IVP in right antecubital ap3 ap3 07:54 07:24 BP 110 / 73; Pulse 3bpm; Resp 16bpm; Pulse Ox 100% RA; 77.11 kg; Height 6 ft.; ap3 BMI: 23.0; Pain 10/10, Adult; hb
[2023-03-04 09:40] VITALS: O2SAT 100
[2023-03-04 09:50] VITALS: TEMP 97.7
[2023-03-04 09:51] VITALS: BP 136/86
== END 2023-03-04 09:26 | disposition home or self-care (01) ==
LOC: ER 07:18
DX: N20.1 Calculus of ureter (principal); Z87.442 Personal history of urinary calculi
CPT/HCPCS: 96361; 81001; 36415; 85027; 80053; 74176; 96375; 96374; 99284; J2405; J7030

== ENCOUNTER 2023-04-08 13:38 | Emergency (ER) | payer BC ==
--- OUTSIDE RECORDS SUMMARY | 2023-04-08 13:41 | XMS REPORT | Continuity of Care Document ---
:2005 Author Organization [facility] t Address [address] [place] [address] [place] [id number] Care Team Providers Name Role Phone Pcp, Patient Does Not Have A Primary Care Physician +[id number] BARTOLO REYNOLDS Attending Clinician Unavailable Doctor Unassigned, [place] Attending Clinician Unavailable Bartolo Cervantes Attending Clinician [...] Drug Active Univers ALLERGIE Class ity of [facility] Social History Social Habit Start Date Stop Date Quantity Comments Source Gender identity [facility] Sexual orientation [facility] Exposure to 2022-03-13 2022-03-23 [facility] SARS-CoV-2 (event) 00:00:00 10:07:00 assess [facility] Sex Assigned At [birth year] [facility] y of 00:00:00 00:00:00 [facility] Smoking Status Start Date Stop Date Source Tobacco smoking consumption General acute hospital Medications Ordered Filled Start Stop Current Ordering Indication Dosage Frequency Signature Comments Components Source Medication Medication Date Date Medication? Clinician (SIG) Name Name tamsulosin 2023-0 Yes [id number] .4mg Take 1 Univers 0.4 mg 24 7-17 capsule by ity of hr capsule 00:00: mouth in [place] 00 the Medical morning. Branch tamsulosin 3-0 Yes [id number] .4mg Take 1 Univers 0.4 mg 24 7-17 capsule by ity of hr capsule 00:00: mouth in [place] 00 the Medical morning. Branch tamsulosin 3-0 Yes [id number] .4mg Take 1 Univers 0.4 mg 24 7-17 capsule by ity of hr capsule 00:00: mouth in [place] 00 the Medical morning. Branch tamsulosin 3-0 Yes [id number] .4mg Take 1 Univers 0.4 mg 24 7-17 capsule by ity of hr capsule 00:00: mouth in [place] 00 the Medical morning. Branch tamsulosin 3-0 Yes [id number] .4mg Take 1 Univers 0.4 mg 24 7-17 capsule by ity of hr capsule 00:00: mouth in [place] 00 the Medical morning. Branch ketorolac 3-0 2022- Yes [id number] 10mg Take 1 Univers 10 mg 7-17 07-23 tablet by ity of tablet 00:00: 04:59 mouth [place] 00 :00 every 6 Medical (six) Branch hours as needed for Pain (scale 7-10) or Pain (scale 4-6) for up to 5 days. ketorolac 3-0 2022- Yes [id number] 10mg Take 1 Univers 10 mg 7-17 07-23 tablet by ity of tablet 00:00: 04:59 mouth [place] 00 :00 every 6 Medical (six) Branch hours as needed for Pain (scale 7-10) or Pain (scale 4-6) for up to 5 days. ketorolac 2023-0 2022- Yes [id number] 10mg Take 1 Univers 10 mg 7-17 07-23 tablet by ity of tablet 00:00: 04:59 mouth [place] 00 :00 every 6 Medical (six) Branch hours as needed for Pain (scale 7-10) or Pain (scale 4-6) for up to 5 days. ketorolac 3-0 2022- Yes [id number] 10mg Take 1 Univers 10 mg 7-17 07-23 tablet by ity of tablet 00:00: 04:59 mouth [place] 00 :00 every 6 Medical (six) Branch hours as needed for Pain (scale 7-10) or Pain (scale 4-6) for up to 5 days. ketorolac 2022- Yes [id number] 10mg Take 1 Univers 10 mg 02-07 [...] ONCE, 1 Medic al dose, On Branch [facility] 03/23/22 at 1200, AUDREY iopamidol 2021- No [id number] 100mL 100 mL, Univers (ISOVUE 03-23 Intravenou ity o f 370-500 mL) 16:15: 16:30 s, ONCE, 1 [place] injection 00 :00 dose, On Medica [facility] 1130, Routine amoxicillin 0 Yes [id number] 1{tbl} Take 1 Univers -clavulanat 8-30 tablet by ity of e 875-125 00:00: mouth [place] mg per 00 every 12 Medical tablet (twelve) Branch hours. amoxicillin Yes [id number] 1{tbl} Take 1 Univers -clavulanat 8-30 tablet by ity of e 875-125 00:00: mouth [place] mg per 00 every 12 Medical tablet (twelve) Branch hours. amoxicillin 2022- No [id number] 1{tbl} Take 1 Univers -clavulanat 8-30 - tablet by it y of e 875-125 00:00: 00:00 mouth [place] mg per 00 :00 every 12 Medical tablet (twelve) Branch hours. amoxicillin 2022- No [id number] 1{tbl} Take 1 Univers -clavulanat 8-30 - tablet by it y of e 875-125 00:00: 00:00 mouth [place] mg per 00 :00 every 12 Medical tablet (twelve) Branch hours. amoxicillin 2022- No [id number] 1{tbl} Take 1 Univers -clavulanat 8-30 - tablet by it y of e 875-125 00:00: 00:00 mouth [place] mg per 00 :00 every 12 Medical tablet (twelve) Branch hours. Vital Signs Vital Name Observation Time Observation Value Comments Source Systolic blood 2023-02-07 14:08:00 125 mm[Hg] Univer [facility]ity [facility] Diastolic blood 2023-02-07 14:08:00 75 [facility]Hg[facility] 2023-02-07 14:08:00 60 /min [facility] Body temperature 2023-02-07 14:08:00 36.72 [facility] Body height 2023-02-07 14:08:00 182.9 cm [facility] Body weight 2023-02-07 14:08:00 83.915 kg [facility] BMI 2023-02-07 14:08:00 25.09 kg/m2 [facility] Oxygen saturation in 2023-02-07 14:08:00 99 /min [facility] Arterial blood by [facility] Pulse oximetry Branch Systolic blood 2022-03-23 17:00:00 129 mm[Hg] Univer sity [facility] Diastolic blood 2022-03-23 17:00:00 79 mm[Hg] Unive rsity [facility] Heart rate 2022-03-23 17:00:00 89 /min [facility] Respiratory rate 2022-03-23 17:00:00 13 /min [facility] Oxygen saturation in 2022-03-23 17:00:00 100 /min [facility] Arterial blood by [facility] Pulse oximetry Branch Body temperature 2022-03-23 16:35:00 37.22 [facility] Body height 2022-03-23 14:57:00 185.4 cm [facility] Body weight 2022-03-23 14:57:00 78.019 kg [facility] BMI 2022-03-23 14:57:00 22.69 kg/m2 [facility] Body mass index 2022-03-23 14:57:00 55.38 % [facility] (BMI) [Percentile] [facility] ica Per age and sex Branch Procedures Procedure Date / Time Performing Clinician Source Performed PATIENT CORRESPONDENCE 2023-02-10 05:01:00 Doctor Karla, [facility] (LETTERS, USPS [place] [facility] [place] DOCUMENTATION) XR KUB 2023-02-07 14:54:00 Bartolo Reynolds [facility] CONSENT/REFUSAL FOR 2023-02-07 14:01:12 Doctor Karla, [facility] DIAGNOSIS AND TREATMENT [place] [facility] AUTHORIZATION TO RELEASE 2023-02-07 05:01:00 Doctor Karla, [facility] PHI TO [facility] [place] [facility] CT ABDOMEN PELVIS W 2022-03-23 16:26:51 Randee Simpson [facility] CONTRAST [facility] Branch XR CHEST 1 VW 2022-03-23 16:07:12 Randee Simpson [facility] COMP. METABOLIC PANEL 2022-03-23 15:15:00 Randee Simpson [facility] ([id number]) Medical [place] CBC WITH DIFF 2022-03-23 15:15:00 Randee Simpson [facility] [place] [facility] [place] NOTICE OF PRIVACY 2022-03-23 14:54:46 Doctor Karla, [facility] PRACTICES [place] [facility] Encounters Start End Encounter Admission Attending Care Care Encounter Source Date/Time Date/Time Type Type Clinicians Facility Department ID 2023-02-10 2023-02-10 Orders Doctor KRYSTA 1.2.840.114 [id number] Univers 00:00:00 00:00:00 Only Unassigned, [place] [id number] ity of [place] [facility] 4.2.7.2.686 [place] [id number] [facility] 009 Branch 2023-02-07 2023-02-07 Hospital [facility] 1.2.840.114 [id number] Univers 09:33:52 23:59:00 Encounter Bartolo Rivera [facility] [id number] ity of [place] [id number] [facility] 807 Branch 2023-02-07 2023-02-07 Office [facility] 1.2.840.114 [id number] Univers 09:30:00 10:00:[id number] [place] [id number] [facility] 204 Branch 2023-02-07 2023-02-07 [facility] [id number] Univers 09:30:00 09:30:00 BARTOLO ity of [facility] 2023-02-07 2023-02-07 Orders Doctor KRYSTA 1.2.840.114 [id number] Univers 00:00:00 00:00:00 Only Unassigned, [place] [id number] ity of [place] [facility] 4.2.7.2.686 [place] [id number] [facility] 009 Branch 2022-03-23 2022-03-23 Emergency X Randee SIMPSON [facility] ERT [id number] Univers 09:59:00 13:20:00 ity of [facility] 2022-03-23 2022-03-23 Emergency Randee Simpson [facility] 1.2.840.114 [id number] Univers 09:59:00 13:20:00 Thao WORLEY 350.1.13.10 i ty of [facility] 4[place]2.7.2.[place] [id number] Medi bridget 084 Branch Results This patient has no known results.
[2023-04-08] MEDS ORDERED: MORPHINE 4 MG/ML SYR ONE ×2 (14:39→16:25)
[2023-04-08] MEDS ORDERED: ONDANSETRON 4 MG/2 ML VIAL ONE (14:39)
[2023-04-08] MEDS ORDERED: NA CHLORIDE 0.9% 1,000 ML ONE ×2 (14:39→16:25)
[2023-04-08 14:43] LABS: Hematocrit 40.5 % (39.6-49.0); Lymphocytes % 18.6 % (15.3-44.8); MCV 93.7 fL (80-100); MPV 7.2 fL (7.6-11.3); Platelets 339 thou/uL (152-406); RBC Red Blood Cell Count 4.32 M/uL (4.33-5.43)
--- NOTE | 2023-04-08 14:56 | RAD REPORT ---
EXAM DESCRIPTION: CT - Abdomen Pelvis W Contrast - 04/08/2023 2:33 pm CLINICAL HISTORY: Abdominal pain COMPARISON: February 2023 TECHNIQUE: Computed axial tomography of the abdomen pelvis was obtained. 100 cc Isovue-300 was admin istered intravenously. Oral contrast was not requested which limits evaluation of bowel and appendix All CT scans are performed using dose optimization technique as appropriate and may include automated exposure control or mA/KV adjustment according to patient size. FINDINGS: Delay of concentration contrast within left kidney. Mild to moderate left hydronephrosis. 6 millimeter calculus distal left ureter has migrated distally since prior exam Liver, spleen, pancreas, adrenals and right kidney unremarkable Normal appendix. No evidence diverticulitis IMPRESSION: 6 millimeter calculus distal left ureter resulting in mild to moderate left hydronephros is
[2023-04-08 15:02] LABS: Albumin 4.4 g/dL (3.4-5.0); Bilirubin Total 0.5 mg/dL (0.2-1.0); Potassium 3.6 mEq/L (3.5-5.1); Protein, Total 7.8 g/dL (6.4-8.2)
[2023-04-08 16:25] LABS: Urine Bacteria None Seen /HPF (<20); Urine Bilirubin NEGATIVE (Negative); Urine Blood 1+ (Negative); Urine Clarity Clear (Clear); Urine Color Yellow (Yellow); Urine Glucose NEGATIVE (Negative); Urine Mucus 1+ /HPF (None Seen); Urine Protein TRACE (Negative); Urine Urobilinogen Normal (Normal)
[2023-04-08] MEDS ORDERED: MAGNESIUM SULFATE 1 gm IVPB 1 GM/100 ML BAG IV ONE (16:25)
[2023-04-08 16:28] LABS: Specific Gravity > 1.030 (1.005-1.030)
--- NOTE | 2023-04-08 17:54 | ER ---
Nurse's Notes [facility] Name: Thony Ramos Age: 17 yrs Sex: Male : 2005 Arrival Date: 04/08/2023 Time: 13:38 Bed 14 [facility] MD: Diagnosis: Calculus of ureter Presentation: 04/08 13:53 Chief complaint: Difficulty urinating x 2 days, severe left flank pain today. Recently hb seen in ED for kidney stone. Coronavirus screen: At this time, the client does not indicate any symptoms associated with coronavirus-19. Ebola Screen: No symptoms or risks identified at this time. Initial Sepsis Screen: Does the patient meet any 2 criteria? No. Patient's initial sepsis screen is negative. Does the patient have a suspected source of infection? No. Patient's initial sepsis screen is negative. Risk Assessment: Do you want to hurt yourself or someone else? Patient reports no desire to harm self or others. Onset of symptoms was April 07, 2023. 13:53 Method Of Arrival: Ambulatory hb 13:53 Acuity: GHADA 3 hb Historical: - Allergies: 13:55 No Known Allergies; hb - PMHx: 13:55 Colitis; kidney stones; hb - PSHx: 13:55 hernia repair; hb - Immunization history:: Adult Immunizations up to date. - Social history:: Smoking status: Patient denies any tobacco usage or history of. Screenin:51 [facility] ED Fall Risk Assessment (Adult) History of falling in the last 3 months, mb9 including since admission No falls in past 3 months (0 pts) Confusion or Disorientation No (0 pts) Intoxicated or Sedated No (0 pts) Impaired Gait No (0 pts) Mobility Assist Device Used No (0 pt) Altered Elimination No (0 pt) Score/Fall Risk Level 0 - 2 = Low Risk Oriented to surroundings, Maintained a safe environment, Educated pt \T\ family on fall prevention, incl call for assistance when getting out of bed. Abuse screen: Denies threats or abuse. Nutritional screening: No deficits noted. Tuberculosis screening: No symptoms or risk factors identified. Assessment: 14:20 General: Appears uncomfortable, Behavior is calm, cooperative. Pain: Complains of pain mb9 in left lower quadrant and left low back Pain currently is 10 out of 10 on a pain scale. Quality of pain is described as throbbing, Pain began 2-3 days ago. Is continuous. Neuro: Don[place]ue Agitation-Sedation Scale (RASS): 0 - Alert and Calm. Neuro: Level of Consciousness is awake, alert, obeys commands, Oriented to person, place, time, situation, Appropriate for age. Cardiovascular: Patient's skin is warm and dry. Respiratory: Airway is patent Respiratory effort is even, unlabored, Respiratory pattern is regular, symmetrical, Breath sounds are clear bilaterally. GI: Abdomen is flat, non-distended, Bowel sounds present X 4 quads. Abd is soft and non tender X 4 quads. Reports nausea. : No signs and/or symptoms were reported regarding the genitourinary system. Derm: Skin is pink, warm \T\ dry. Musculoskeletal: Range of motion: intact in all extremities. 15:20 Reassessment: No changes from previously documented assessment. Patient and/or family mb9 updated on plan of care and expected duration. Pain level reassessed. Patient is alert, oriented x 3, equal unlabored respirations, skin warm/dry/pink. 16:20 Reassessment: No changes from previously documented assessment. Patient and/or family mb9 updated on plan of care and expected duration. Pain level reassessed. Patient is alert, oriented x 3, equal unlabored respirations, skin warm/dry/pink. 18:02 Reassessment: Patient and/or family updated on plan of care and expected duration. Pain mb9 level reassessed. Patient is alert, oriented x 3, equal unlabored respirations, skin warm/dry/pink. Patient denies pain at this time. Patient states feeling better. Vital Signs: 13:53 BP 123 / 82; Pulse 79; Resp 16; Temp 98.2(O); Pulse Ox 100% on R/A; Weight 81.65 kg; hb Height 6 ft. 0 in. ; Pain 8/10; 14:51 BP 119 / 67; Pulse 74; Resp 16; Pulse Ox 100% on R/A; mb9 16:34 BP 112 / 63; Pulse 90; Resp 16; Pulse Ox 99% on R/A; mb9 17:30 BP 100 / 55; Pulse 71; Resp 18; Pulse Ox 100% on R/A; mb9 13:53 Body Mass Index 24.41 (81.65 kg, 182.88 cm) hb 13:53 Pain Scale: Adult hb ED Course: 13:41 Patient arrived in ED. mg5 13:53 [facility]tega [facility] sb4 13:53 Abdullahi Higuera DO is Attending Physician. sb4 13:54 Sylvia Paez, AMMON is Primary Nurse. mb9 13:55 Triage completed. hb 13:55 Arm band placed on. hb 14:35 CT Abd/Pelvis - IV Contrast Only In Process Unspecified. EDMS 14:36 CBC with Diff Sent. bc6 14:36 CMP Sent. bc6 14:36 Lipase Sent. bc6 14:37 Inserted saline lock: 20 gauge in left antecubital area, using aseptic technique. Blood bc6 collected. 14:51 Placed in gown. Bed in low position. Call light in reach. Side rails up X 1. Client mb9 placed on continuous cardiac and pulse oximetry monitoring. NIBP monitoring applied. monitoring and evaluation advisor on. 14:52 No provider procedures requiring assistance completed. mb9 17:53 Adolfo Denton MD is Referral Physician. sb4 18:02 IV discontinued, intact, bleeding controlled, No redness/swelling at site. Pressure mb9 dressing applied. Administered Medications: 14:30 Drug: NS 0.9% IV 1000 ml Route: IV; Rate: 1 bolus; Site: right antecubital; mb9 16:14 Follow up: Response: No adverse reaction; IV Status: Completed infusion mb9 14:35 Drug: Ondansetron IVP 4 mg Route: IVP; Site: right antecubital; mb9 15:06 Follow up: Response: No adverse reaction mb9 14:40 Drug: morphine IVP or IV 4 mg Route: IVP; Infused Over: 4 mins; Site: right antecubital;mb9 15:06 Follow up: Response: No adverse reaction mb9 16:15 Drug: NS 0.9% IV 1000 ml Route: IV; Rate: 1 bolus; Site: right antecubital; mb9 16:15 Drug: morphine IVP or IV 4 mg Route: IVP; Infused Over: 4 mins; Site: right antecubital;mb9 16:21 Drug: Magnesium Sulfate IVPB 1 grams Route: IVPB; Infused Over: 1 hrs; Site: right mb9 antecubital; Medication: 14:51 VIS not applicable for this client. mb9 Outcome: 17:53 Discharge ordered by . syed 18:02 Discharged to home ambulatory. mb9 18:02 Condition: stable 18:02 Discharge instructions given to patient, family, Instructed on discharge instructions, follow up and referral plans. Demonstrated understanding of instructions, follow-up care, medications, Prescriptions given X 1. 18:02 Patient left the ED. mb9 Signatures: Dispatcher [employer] EDMS Ca Mercado RN RN hb Brown, Sophia, PA-C PA-C sb4 Sylvia Paez RN RN mb9 Janie Mcfarland6 Aga Chaves mg5
--- NOTE | 2023-04-08 17:54 | EDPHYS ---
Physician Documentation [facility] Name: Thony Ramos Age: 17 yrs Sex: Male : 2005 Arrival Date: 04/08/2023 Time: 13:38 Bed 14 Private MD: ED Physician Abdullahi Higuera HPI: 04/08 14:37 This 17 yrs old Male presents to ER via Ambulatory with complaints of Possible Kidney sb4 Stone. 14:37 The patient complains of pain in the left low back. The pain radiates to the left lower sb4 quadrant. 14:38 Onset: The symptoms/episode began/occurred 2 month(s) ago, and became worse 2 day(s) sb4 ago. Modifying factors: The symptoms are alleviated by nothing. the symptoms are aggravated by nothing. Associated signs and symptoms: Pertinent positives: hematuria, nausea. The patient has experienced similar episodes in the past, a few times. patient with left sided flank pain. he has been dealing with this for 2 months now, with a known stone. stone still hasn't passed and is causing him significant discomfort. states now he is having difficulty urinating. has not been able to get into see urology. has been taking ketorolac and flomax. Historical: - Allergies: 13:55 No Known Allergies; hb - PMHx: 13:55 Colitis; kidney stones; hb - PSHx: 13:55 hernia repair; hb - Immunization history:: Adult Immunizations up to date. - Social history:: Smoking status: Patient denies any tobacco usage or history of. ROS: 14:38 Constitutional: Negative for fever, chills, and weight loss. sb4 14:38 Abdomen/GI: Positive for abdominal pain, nausea. 14:38 Back: Positive for flank pain, on the left. 14:38 : Positive for hematuria, difficulty urinating. 14:38 All other systems are negative. Exam: 14:42 Constitutional: This is a well developed, well nourished patient who is awake, alert, sb4 and in no acute distress. Head/Face: Normocephalic, atraumatic. Eyes: Extra-ocular motions intact. Periorbital areas with no swelling, redness, or edema. ENT: Mucous membranes moist. Cardiovascular: Regular rate and rhythm with a normal S1 and S2. Respiratory: Lungs have equal breath sounds bilaterally, clear to auscultation and percussion. No rales, rhonchi or wheezes noted. No increased work of breathing, no retractions or nasal flaring. Abdomen/GI: Soft, non-tender, no distension. Skin: Warm, dry with normal turgor. Normal color with no rashes, no lesions, and no evidence of cellulitis. MS/ Extremity: Pulses equal, no cyanosis. Neurovascular intact. Full, normal range of motion. 14:42 Back: pain, that is moderate, ROM is normal, normal spinal alignment noted, CVA tenderness, that is moderate, is noted on the left, muscle spasm, is not present. Vital Signs: 13:53 BP 123 / 82; Pulse 79; Resp 16; Temp 98.2(O); Pulse Ox 100% on R/A; Weight 81.65 kg; hb Height 6 ft. 0 in. ; Pain 8/10; 14:51 BP 119 / 67; Pulse 74; Resp 16; Pulse Ox 100% on R/A; mb9 16:34 BP 112 / 63; Pulse 90; Resp 16; Pulse Ox 99% on R/A; mb9 17:30 BP 100 / 55; Pulse 71; Resp 18; Pulse Ox 100% on R/A; mb9 13:53 Body Mass Index 24.41 (81.65 kg, 182.88 cm) hb 13:53 Pain Scale: Adult hb MDM: 13:53 Patient medically screened. sb4 14:42 Differential diagnosis: nephrolithiasis, pyelonephritis, UTI. sb4 17:52 Data reviewed: vital signs, nurses notes, lab test result(s), radiologic studies, I sb4 have discussed the patient's presentation/case with the attending Emergency Department Physician; and as a result, I will discharge patient. Counseling: I had a detailed discussion with the patient and/or guardian regarding the historical points, exam findings, and any diagnostic results supporting the discharge/admit diagnosis, lab results, radiology results, the need for outpatient follow up, a urologist, to return to the emergency department if symptoms worsen or persist or if there are any questions or concerns that arise at home. ED course: pain has improved. stone is slowly moving down the ureter. patient reports that he has flomax at home, does not need a refill. ketoralac is not relieving his pain so will try tylenol with codeine as discussed with attending physician. 04/08 14:10 Order name: CBC with Diff; Complete Time: 14:52 sb4 04/08 14:10 Order name: CMP; Complete Time: 15:02 sb4 04/08 14:10 Order name: Lipase; Complete Time: 15:02 sb4 04/08 14:10 Order name: UAM; Complete Time: 16:29 sb4 04/08 14:10 Order name: CT Abd/Pelvis - IV Contrast Only; Complete Time: 14:58 sb4 04/08 14:10 Order name: IV Saline Lock; Complete Time: 14:36 sb4 04/08 14:10 Order name: Labs collected and sent; Complete Time: 14:36 sb4 Administered Medications: 14:30 Drug: NS 0.9% IV 1000 ml Route: IV; Rate: 1 bolus; Site: right antecubital; mb9 16:14 Follow up: Response: No adverse reaction; IV Status: Completed infusion mb9 14:35 Drug: Ondansetron IVP 4 mg Route: IVP; Site: right antecubital; mb9 15:06 Follow up: Response: No adverse reaction mb9 14:40 Drug: morphine IVP or IV 4 mg Route: IVP; Infused Over: 4 mins; Site: right antecubital;mb9 15:06 Follow up: Response: No adverse reaction mb9 16:15 Drug: NS 0.9% IV 1000 ml Route: IV; Rate: 1 bolus; Site: right antecubital; mb9 16:15 Drug: morphine IVP or IV 4 mg Route: IVP; Infused Over: 4 mins; Site: right antecubital;mb9 16:21 Drug: Magnesium Sulfate IVPB 1 grams Route: IVPB; Infused Over: 1 hrs; Site: right mb9 antecubital; Disposition: 15:02 Co-signature as Attending Physician, Abdullahi BILLINGS was immediately available on-site ms3 in the Emergency Department for consultation in the care of the patient. Disposition Summary: 04/08/23 17:53 Discharge Ordered Location: Home sb4 Problem: an ongoing problem sb4 Symptoms: have improved sb4 Condition: Stable sb4 Diagnosis - Calculus of ureter sb4 Followup: sb4 - With: - When: 2 - 3 days - Reason: Recheck today's complaints, Re-evaluation by your physician Discharge Instructions: - Discharge Summary Sheet sb4 - Kidney Stones sb4 - Renal Colic sb4 - Dietary Guidelines to Help Prevent Kidney Stones sb4 Forms: - Medication Reconciliation Form sb4 - Thank You Letter sb4 - Antibiotic Education sb4 - Prescription Opioid Use sb4 - Patient Portal Instructions sb4 - Leadership Thank You Letter sb4 Prescriptions: - acetaminophen-codeine 300-15 mg Oral tablet - take 1 tablet by ORAL route 3 times per day as needed for pain; 12 tablet; sb4 Refills: 0, Product Selection Permitted Signatures: Dispatcher [employer] EDMS Ca Mercado, RN RN hb Abdullahi Higuera DO DO ms3 Homa Ortega PA-C PA-C sb4 Sylvia Paez RN RN mb9
[2023-04-08 18:16] VITALS: TEMP 98.2
[2023-04-08 18:22] VITALS: BP 100/55; O2SAT 100
== END 2023-04-08 18:02 | disposition home or self-care (01) ==
LOC: ER 13:38
DX: N20.1 Calculus of ureter (principal); Z87.442 Personal history of urinary calculi
CPT/HCPCS: 96361; 85025; 81001; 36415; 83690; 80053; 74177; 96375; 96374; 99285; Q9967; J3475; J2405; J7030 ×2

== ENCOUNTER 2024-06-04 11:23 | Emergency (ER) | payer BC ==
[2024-06-04] MEDS ORDERED: KETOROLAC 30 MG/ML INJ ONE (12:25)
--- NOTE | 2024-06-04 13:43 | ER ---
Nurse's Notes [facility] Name: Thony Ramos Age: 18 yrs Sex: Male : 2005 Arrival Date: 06/04/2024 Time: 11:23 Bed 12 Private MD: Diagnosis: Sprain of other part of wrist and hand Presentation: 06/04 11:45 Chief complaint: Patient states: Hit hand on ladder 1 hour [employer] LAT[employer]OR. Coronavirus screen: ll1 Client denies travel out of the [place] in the last 14 days. At this time, the client does not indicate any symptoms associated with coronavirus-19. Ebola Screen: Patient denies travel to an Ebola-affected area in the 21 days before illness onset. Initial Sepsis Screen: Does the patient meet any 2 criteria? No. Patient's initial sepsis screen is negative. Does the patient have a suspected source of infection? No. Patient's initial sepsis screen is negative. Risk Assessment: Do you want to hurt yourself or someone else? Patient reports no desire to harm self or others. Onset of symptoms was June 04, 2024. 11:45 Method Of Arrival: Ambulatory 1 11:45 Acuity: GHADA 4 1 13:50 Care prior to arrival: None. Mechanism of Injury: No Mechanism of Injury. Trauma event ll1 details: Injury occurred in the [facility]. Triage Assessment: 11:45 General: Appears uncomfortable, Behavior is calm, cooperative, appropriate for age. ll1 Pain: Complains of pain in right hand Quality of pain is described as aching. Musculoskeletal: Circulation, motion, and sensation intact. Capillary refill < 3 seconds, in right fingers. Swelling present in dorsum of right hand Reports pain in right hand. Injury Description: Bruise. Trauma Activation: Not Applicable Physician: ED Physician; Name: ; Notified At: ; Arrived At: Physician: General Surgeon; Name: ; Notified At: ; Arrived At: Physician: Radiology; Name: ; Notified At: ; Arrived At: Physician: Respiratory; Name: ; Notified At: ; Arrived At: Physician: Lab; Name: ; Notified At: ; Arrived At: Historical: - Allergies: 11:46 No Known Allergies; ll1 - PMHx: 11:46 Colitis; Kidney stones; ll1 - PSHx: 11:46 hernia repair; kidney stone surgery (hernia repair); ll1 - Immunization history:: Adult Immunizations up to date. - Infectious Disease History:: Denies. - Immunization history: Last tetanus immunization: - up to date. - Social history:: Smoking status: Patient denies any tobacco usage or history of. Screenin:49 [facility] ED Fall Risk Assessment (Adult) History of falling in the last 3 months, ll1 including since admission Yes- single mechanical fall (1 pt) Confusion or Disorientation No (0 pts) Intoxicated or Sedated No (0 pts) Impaired Gait No (0 pts) Mobility Assist Device Used No (0 pt) Altered Elimination No (0 pt) Score/Fall Risk Level 0 - 2 = Low Risk Maintained a safe environment, Hourly rounding (assess needs \T\ fall precautionary measures) done. Abuse screen: Denies threats or abuse. Nutritional screening: No deficits noted. Tuberculosis screening: No symptoms or risk factors identified. Primary Survey: 13:49 NO uncontrolled hemorrhage observed. A: The client is awake and alert. The airway is ll1 patent. Breathing/Chest: Spontaneous respiratory effort, equal unlabored respirations, breath sounds clear bilaterally, regular pattern, symmetrical chest rise and fall. Circulation: No external hemorrhage present. Regular and strong central pulse, skin warm/dry/normal color. Disability Client is alert. Exposure/Environment: There is no evidence of uncontrolled external bleeding. 13:50 Reassessment Breathing: Spontaneous respiratory effort, equal unlabored respirations, ll1 breath sounds clear bilaterally, regular pattern with symmetrical chest rise and fall. Assessment: 12:33 Reassessment: No changes from previously documented assessment. Patient and/or family ll1 updated on plan of care and expected duration. Pain level reassessed. Patient is alert, oriented x 3, equal unlabored respirations, skin warm/dry/pink. Vital Signs: 11:45 BP 113 / 62; Pulse 70; Resp 16; Temp 97.2; Pulse Ox 100% ; Weight 79.83 kg; Height 6 ll1 ft. 0 in. ; Pain 6/10; 13:48 BP 96 / 55; Pulse 52; Resp 16; Pulse Ox 100% ; Pain 3/10; ll1 11:45 Body Mass Index 23.87 (79.83 kg, 182.88 cm) ll1 11:45 Pain Scale: Adult ll1 13:48 Pain Scale: Adult ll1 Janey Coma Score: 13:50 Eye Response: spontaneous(4). Motor Response: obeys commands(6). Verbal Response: ll1 oriented(5). Total: 15. Trauma Score (Adult): 13:50 Eye Response: spontaneous(1); Verbal Response: oriented(1); Motor Response: obeys ll1 commands(2); Systolic BP: > 89 mm Hg(4); Respiratory Rate: 10 to 29 per min(4); [place] Score: 15; Trauma Score: 12 ED Course: 11:26 Patient arrived in ED. im 11:26 Nolan Washington FNP-C is PHCP. dr5 11:26 Jordan Gan MD is Attending Physician. dr5 11:46 Triage completed. ll1 11:47 Arm band placed on Patient placed in an exam room, on a stretcher. ll1 12:20 Janet Jackson RN is Primary Nurse. ll1 12:51 Hand Right 3 View XRAY In Process Unspecified. EDMS 13:50 No provider procedures requiring assistance completed. Patient did not have IV access ll1 during this emergency room visit. 13:51 Patient has correct armband on for positive identification. Provided Education on: ll1 return to ED for worsening symptoms. 13:51 Patient maintains SpO2 saturation greater than 95% on room air. ll1 13:52 Thermoregulation: warm blanket given to patient. ll1 Administered Medications: 12:29 Drug: Ketorolac IM 30 mg IM once Route: IM; Site: right vastus lateralis; ll1 13:49 Follow up: Response: No adverse reaction; Pain is decreased; RASS: Alert and Calm (0) ll1 Medication: 13:53 VIS not applicable for this client. ll1 Intake: 13:51 PO: 100ml; Total: 100ml. ll1 Output: 13:51 Urine: 0ml; Total: 0ml. ll1 Outcome: 13:42 Discharge ordered by . dr5 13:50 Discharged to home ambulatory, ll1 13:50 Condition: stable 13:50 Discharge instructions given to patient, family, Instructed on discharge instructions, follow up and referral plans. medication usage, Demonstrated understanding of instructions, follow-up care, splint care, 13:51 Patient's length of stay was not longer than 2 hours. ll1 13:52 Patient left the ED. ll1 Signatures: Dispatcher [employer] Janet Olivo, AMMON RN ll1 Inez Brooks Dustin, DATA WAREHOUSING ENGINEER-C DATA WAREHOUSING ENGINEER-[id number]
--- NOTE | 2024-06-04 13:43 | EDPHYS ---
Physician Documentation [facility] Name: Thony Ramos Age: 18 yrs Sex: Male : 2005 Arrival Date: 06/04/2024 Time: 11:23 Bed 12 Private MD: ED Physician Jordan Gan HPI: 06/04 11:51 This 18 yrs old Male presents to ER via Ambulatory with complaints of Crush dr5 Injury To Hand - right. 11:51 The patient or guardian reports swelling, tenderness. The complaints affect the medial dr5 aspect of right hand and dorsum of right hand. Patient is a 18-year-old male coming in with right sided hand swelling noted over fourth and fifth metacarpal. Patient reports he hit his right hand while falling 2-3 steps down off a ladder about 1 hour prior to arrival.. Historical: - Allergies: 11:46 No Known Allergies; ll1 - PMHx: 11:46 Colitis; Kidney stones; ll1 - PSHx: 11:46 hernia repair; kidney stone surgery (hernia repair); ll1 - Immunization history:: Adult Immunizations up to date. - Infectious Disease History:: Denies. - Immunization history: Last tetanus immunization: - up to date. - Social history:: Smoking status: Patient denies any tobacco usage or history of. ROS: 11:51 Constitutional: as per hpi dr5 Exam: 11:51 Constitutional: This is a well developed, well nourished patient who is awake, alert, dr5 and in no acute distress. Eyes: Pupils equal round and reactive to light, extra-ocular motions intact. Lids and lashes normal. Conjunctiva and sclera are non-icteric and not injected. Cornea within normal limits. Periorbital areas with no swelling, redness, or edema. ENT: Nares patent. No nasal discharge, no septal abnormalities noted. Tympanic membranes are normal and external auditory canals are clear. Oropharynx with no redness, swelling, or masses, exudates, or evidence of obstruction, uvula midline. Mucous membranes moist. Chest/axilla: Normal chest wall appearance and motion. Nontender with no deformity. No lesions are appreciated. Cardiovascular: Regular rate and rhythm with a normal S1 and S2. Normal PMI, no JVD. No pulse deficits. Respiratory: Lungs have equal breath sounds bilaterally, clear to auscultation. No rales, rhonchi or wheezes noted. No increased work of breathing, no retractions or nasal flaring. Back: No spinal tenderness. No costovertebral tenderness. Full range of motion. 11:51 Musculoskeletal/extremity: Extremities: swelling, tenderness, ROM: no acute changes, Circulation is intact in all extremities. the right hand Compartment Syndrome exam of affected extremity: is normal. 11:51 Neuro: Orientation: is normal, appropriate for stated age, Vital Signs: 11:45 BP 113 / 62; Pulse 70; Resp 16; Temp 97.2; Pulse Ox 100% ; Weight 79.83 kg; Height 6 ll1 ft. 0 in. ; Pain 6/10; 13:48 BP 96 / 55; Pulse 52; Resp 16; Pulse Ox 100% ; Pain 3/10; ll1 11:45 Body Mass Index 23.87 (79.83 kg, 182.88 cm) ll1 11:45 Pain Scale: Adult ll1 13:48 Pain Scale: Adult ll1 Janey Coma Score: 13:50 Eye Response: spontaneous(4). Motor Response: obeys commands(6). Verbal Response: ll1 oriented(5). Total: 15. Trauma Score (Adult): 13:50 Eye Response: spontaneous(1); Verbal Response: oriented(1); Motor Response: obeys ll1 commands(2); Systolic BP: > 89 mm Hg(4); Respiratory Rate: 10 to 29 per min(4); [place] Score: 15; Trauma Score: 12 MDM: 11:27 Medical Screening Exam initiated dr5 12:58 Awaiting: X-ray results. dr5 13:43 Differential diagnosis: open fracture, closed fracture, contusion, abrasion. Data dr5 reviewed: vital signs, nurses notes. Consideration of Admission/Observation Escalation of care including admission/observation considered. Escalation considered open fracture, possibly need surgery. Independent interpretation of the following test(s) in the Emergency Department X-Ray: My interpretation is Official x-ray report not back. Do not see obvious fracture on my read. Offered patient splint/Blanco wrap and patient currently denied. Work note given. Recommended alternating Tylenol Motrin as needed for pain. Care significantly affected by the following Social Determinants of Health: Poor access to healthcare and/or lack of insurance, Poor access to transportation. Counseling: I had a detailed discussion with the patient and/or guardian regarding the historical points, exam findings, and any diagnostic results supporting the discharge/admit diagnosis, radiology results, the need for outpatient follow up, for definitive care, a hand specialist, a orthopedic surgeon, to return to the emergency department if symptoms worsen or persist or if there are any questions or concerns that arise at home. Medication response: Toradol markedly relieved the patient's pain. Response to treatment: the patient's symptoms have markedly improved after treatment. Awaiting: X-ray results. ED course: Explained the patient that official x-ray report is not back due to not crossing over. Patient does not want a wait for report. I will call them if fracture noted on official read.. 15:54 ED course: Reviewed x-ray report with no abnormality or fracture. No further dr5 intervention required at this time. 06/04 11:46 Order name: Hand Right 3 View XRAY; Complete Time: 14:46 dr5 Administered Medications: 12:29 Drug: Ketorolac IM 30 mg IM once Route: IM; Site: right vastus lateralis; ll1 13:49 Follow up: Response: No adverse reaction; Pain is decreased; RASS: Alert and Calm (0) ll1 Disposition Summary: 06/04/24 13:42 Discharge Ordered Notes: Location: Home dr5 Condition: Stable dr5 Diagnosis - Sprain of other part of wrist and hand dr5 Followup: dr5 - With: Emergency Department - When: As needed - Reason: Worsening of condition Followup: dr5 - With: Private Physician - When: 1 - 2 days - Reason: Recheck today's complaints, Continuance of care, Re-evaluation by your physician Discharge Instructions: - Discharge Summary Sheet dr5 - Hand Contusion dr5 Forms: - Work release form dr5 - Medication Reconciliation Form dr5 - Patient Portal Instructions dr5 - Leadership Thank You Letter dr5 Signatures: Dispatcher [employer] Janet Olivo RN RN ll1 Nolan [place], REPROGRAPHICS TECHNICIAN-C REPROGRAPHICS TECHNICIAN-Cdr5
--- NOTE | 2024-06-04 14:41 | RAD REPORT ---
EXAM: XR Hand Right 3 View HISTORY: [facility] MAIN WEAKNESS Bed Name: [email or web address] COMPARISON: None TECHNIQUE: 3 radiographic views of the RIGHT hand submitted. FINDINGS: Underexposure on the AP view somewhat limits evaluation. No evidence of acute fracture or d islocation. Joint alignment is maintained. No soft tissue swelling is seen.. No significant degenerative changes are present. IMPRESSION: No significant bone or joint abnormality.
== END 2024-06-04 13:52 | disposition home or self-care (01) ==
LOC: ER 11:23
DX: S63.8X1A Sprain of other part of right wrist and hand, initial encounter (principal); W11.XXXA Fall on and from ladder, initial encounter
CPT/HCPCS: 96372; 99284